=== PATIENT | female | born 1945 | race Caucasian/White ===

== ENCOUNTER 2016-10-08 11:50 | Outpatient (CLI) | payer MEDICARE, BC ==
[~2016-10-08] VITALS: Ht 172.7 cm; Wt 81.8 kg
--- NOTE | ~2016-10-08 | HEMODYNAMI ---
PATIENT:BIANCA EDOUARD MEDICAL RECORD: [id number] : 41 LOCATION:[facility] ADMISSION DATE: 10/08/16 Generatedon:10/08/201615:20 Patient name: BIANCA EDOUARD Patient #: [id number] : 1945 Date of study: 10/08/2016 Page: Of Hemodynamic Procedure Report Patient Data Patient Demographics Procedure consent was obtained First Name: BIANCA Gender: Female Last Name: SILKE : 1945 Middle Initial: S Age: 71 year(s) Patient #: [id number] Race: SSN: [id number] Additional ID: [id number] Contact details Address: [address] [place] [address] State: [place] City: [place] Zip code: [address] Past Medical History Allergies Allergen Reaction Date Comments Reported Morphine 08/30/2014 Morphine 10/08/2016 Admission Admission Data Admission Date: 10/08/2016 Admission Time: 11:50 Arrival Date: 10/08/2016 Arrival Time: 14:00 Admit Source: Other Insurance Payor: Medicare Height (in.): 68 BSA: 2.08 (m2) Height (cm.): 172.72 BMI: 31.63 (kg/m2) Weight (lbs.): 208 Weight (kg.): 94.35 Lab Results Lab Result Date: 10/08/2016 Lab Result Time: 0:00 Biochemistry Name Units Result Min Max BUN mg/dl 16 --(---*)-- 7 18 Creatinine mg/dl 0.9 --(-*--)-- 0.6 1.3 CBC Name Units Result Min Max Hemoglobin g/dl 12.4 *-(----)-- 13.5 17.5 Procedure Procedure Types Cath Procedure Miscellaneous Procedures Moderate Sedation up to 30 minutes Peripheral Cath Diagnostic Procedure Cath Peripheral Bfymi-Rzasiyo-Jla-Off Procedure Description Procedure Date Procedure Date: 10/08/2016 Procedure Start Time: 15:06 Procedure End Time: 15:17 Procedure Staff Name Function Vincenzo Esquivel MD Performing Physician Dianna Johnson RT Scrub Jeff Dickerson RN Nurse Sue Brady RT Monitor Procedure Data Cath Procedure Fluoroscopy Diagnostic fluoroscopy Total fluoroscopy Time: 0.9 time: 0.9 min min Diagnostic fluoroscopy Total fluoroscopy dose: 127 dose: 127 mGy mGy Contrast Material Contrast Material Type Amount (ml) Isovue 370 51 Entry Location Entry Primary Successful Side Size Upsize Upsize Entry Closure Succes sful Closure Location (Fr) 1 (Fr) 2 (Fr) Remarks Device Remarks Femoral Right 5 Fr Exoseal artery Estimated blood loss: 5 ml Diagnostic catheters Device Type Used For End Catheter Placement Cordis Tempo 5Fr UF Multi-vessel catheter Angiography Procedure Complications No complications Procedure Medications Medication Administration Route Dosage Oxygen NC 2 l/min Lidocaine 2% added to field 20 Heparin Flush Bag added to field 2 bags (1000units/500ml NS) 0.9% NaCl I.V. 100 ml/hr Benadryl I.V. 50 mg Versed I.V. 1 mg Fentanyl I.V. 50 mcg 0.9% NaCl I.V. bolus 250 ml Versed I.V. 1 mg Fentanyl I.V. 50 mcg Versed I.V. 1 mg Fentanyl I.V. 50 mcg Fentanyl I.V. 50 mcg Hemodynamics Rest BSA: 2.08 (m2) HGB: 12.4 (g/dl) O2 Consumption: Estimated: 194.02 (ml/min) O2 Co nsumption indexed: Estimated:93.28 (ml/min/m) Heart Rate: 75 (bpm) Snapshots Pre Cath Intra NCS Post Cath Vital Signs Time Heart Resp SPO2 etCO2 CR3avsa NIBP Rhythm Pain Sedation Rate (ipm) (%) (mmHg) (mmHg) (mmHg) Status Level (bpm) 14:50:54 85 31 98 0 0 115/63(79) NSR 0 (11) 10(A) , No pain 14:55:06 86 26 96 0 0 102/67(87) NSR 0 (11) 10(A) , No pain 14:59:16 73 18 96 0 0 91/47(68) NSR 0 (11) 10(A) , No pain 15:03:26 82 15 93 0 0 95/47(67) NSR 0 (11) 10(A) , No pain 15:07:34 81 17 98 0 0 111/61(81) NSR 0 (11) 9(A) , No pain 15:11:42 82 15 94 0 0 85/52(66) NSR 0 (11) 9(A) , No pain 15:16:35 85 16 94 0 0 91/56(72) NSR 0 (11) 9(A) , No pain 15:20:16 92 17 97 0 0 109/57(79) NSR 0 (11) 10(A) , No pain Medications Time Medication Route Dose Verified Delivered Reason Notes Effe ctiveness by by 14:50:23 Oxygen NC 2 Vincenzo Buffie used for l/min Alvin Dickerson RN procedure 14:50:42 Lidocaine 2% added 20ml Vincenzo Vincenzo for local to vial Alvin Esquivel MD anesthetic field 14:50:48 Heparin Flush added 2 Vincenzo Vincenzo used for Bag to bags Alvin Esquivel MD procedure (1000units/500ml field NS) 14:51:58 0.9% NaCl I.V. 100 Vincenzo Buffie Per ml/hr Alvin Dickerson RN physician 14:53:08 Benadryl I.V. 50 mg Vincenzo Buffie used for Alvin Dickerson RN procedure 14:58:40 Versed I.V. 1 mg Vicnenzo Buffie for Alvin Dickerson RN sedation 14:58:46 Fentanyl I.V. 50 Vincenzo Buffie for mcg Alvin Dickerson RN sedation 15:04:05 0.9% NaCl I.V. 250 Vincenzo Buffie Per bolus ml Alvin Dicekrson RN physician 15:04:23 Versed I.V. 1 mg Vincenzo Buffie for Alvin Dickerson RN sedation 15:04:26 Fentanyl I.V. 50 Vincenzo Buffie for mcg Alvin Dickerson RN sedation 15:10:16 Versed I.V. 1 mg Vincenzo Buffie for Alvin Dickerson RN sedation 15:10:20 Fentanyl I.V. 50 Vincenzo Buffie for mcg Alvin Dickerson RN sedation 15:14:44 Fentanyl I.V. 50 Vincenzo Buffie for mcg Alvin Dickerson RN sedation Procedure Log Time Note 14:38:34 Informed consent obtained and on chart 14:39:15 Diagnostic Cath Status : Elective 14:39:31 Jeff Dickerson RN sent for patient. Start room use. 14:39:32 Time tracking: Regular hours 14:39:38 Plan of Care:Hemodynamics will remain stable., Cardiac rhythm will remain stable., Comfort level will be maintained., Respiratory function will remain adequate., Patient/ family verbilizes understanding of procedure., Procedure tolerated without complication., Recovers from procedure without complications.. 14:41:05 Admit Source: Other 14:41:11 Arrival Date: 10/08/2016 2:00:00 PM 14:41:18 Insurance Payor : Medicare 14:41:25 Patient Height : 68 cm 14:41:38 Patient Weight : 208 kg 14:43:24 Lab Result : Hemoglobin 12.4 g/dl 14:43:24 Lab Result : Creatinine 0.9 mg/dl 14:43:24 Lab Result : BUN 16 mg/dl 14:45:42 Patient received from Pre/Post Procedure Room to [facility] 1 Alert and oriented. Tansferred to table in Supine position. 14:45:45 Warm blankets applied, and carole hugger turned on for patient comfort. 14:45:46 Correct patient and procedure confirmed by team. 14:45:47 ECG and BP/O2 sat monitors applied to patient. 14:49:48 Vital chart was started 14:50:20 Rhythm: sinus rhythm 14:50:22 Full Disclosure recording started 14:50:23 Oxygen 2 l/min NC was administered by Jeff Dickerson RN; used for procedure; 14:50:36 H&P Date Dictated: 10/02/2016 Within 30 days and on chart., H&P Addendum completed by physician on day of procedure. (MUST COMPLETE FOR ALL OUTPATIENTS). 14:50:39 Pre-procedure instructions explained to patient. 14:50:39 Pre-op teaching completed and patient verbalized understanding. 14:50:40 Family in waiting room. 14:50:42 Lidocaine 2% 20ml vial added to field was administered by Vincenzo Esquivel MD; for local anesthetic; 14:50:42 Patient NPO since Midnight. 14:50:48 Heparin Flush Bag (1000units/500ml NS) 2 bags added to field was administered by Vincenzo Esquivel MD; used for procedure; 14:50:50 Patient allergic to Morphine 14:50:52 Is the patient allergic to Iodine/contrast media? No. 14:50:55 Is patient on blood thinner?No 14:51:18 Patient diabetic? No. 14:51:23 Previous problem with sedation/anesthesia? No ? 14:51:25 Snore? No 14:51:26 Sleep apnea? No 14:51:29 Deviated septum? No 14:51:30 Opens mouth fully? Yes 14:51:31 Sticks out tongue? Yes 14:51:32 Airway obstruction? No ? 14:51:35 Dentures? No ? 14:51:41 Pre procedure: right dorsailis pedis pulse 1+ Palpable, but thready & weak; easily obliterated 14:51:47 Pre procedure: left dorsailis pedis pulse Doppler 14:51:50 Patient pain scale 0/10 ?. 14:51:58 0.9% NaCl 100 ml/hr I.V. was administered by Jeff Dickerson RN; Per physician; 14:52:02 IV patent on arrival in right forearm with 0.9% NaCl at [facility]. 14:52:06 Lab results completed and on chart. 14:52:09 Alarms reviewed by R. N. 14:52:10 Sharps counted by scrub and verified by R.N. 14:52:25 Acist Syringe opened to sterile field. 14:52:25 Bag Decanter opened to sterile field. 14:52:26 Medline Cath Pack opened to sterile field. 14:52:26 Terumo 5Fr Beatty Sheath opened to sterile field. 14:52:27 St Jean 260cm J .035 wire opened to sterile field. 14:52:28 Acist Hand Control opened to sterile field. 14:52:28 Acist Manifold opened to sterile field. 14:52:30 Tegaderm 4 x 4 opened to sterile field. 14:53:08 Benadryl 50 mg I.V. was administered by Jeff Dickerson RN; used for procedure; 14:53:59 Baseline sample Acquired. 14:57:05 Physician arrived 14:57:06 --------ALL STOP TIME OUT------ 14:57:06 Final Timeout: patient, procedure, and site verified with staff and physician. All members of the team are in agreement. 14:57:09 Bilateral groins site verified by team. 14:57:12 Physical assessment completed. ASA score P 2 - A patient with mild systemic disease as per Vincenzo Esquivel MD. 14:57:17 Sedation plan: IV Moderate Sedation Versed, Fentanyl 14:58:40 Versed 1 mg I.V. was administered by Jeff Dickerson RN; for sedation; 14:58:46 Fentanyl 50 mcg I.V. was administered by Jeff Dickerson RN; for sedation; 15:02:38 Use device set Femoral Dx 15:02:47 Acist Syringe opened to sterile field. 15:02:48 Bag Decanter opened to sterile field. 15:02:49 Medline Cath Pack opened to sterile field. 15:02:51 Terumo 5Fr Beatty Sheath opened to sterile field. 15:02:52 St Jean 260cm J .035 wire opened to sterile field. 15:02:53 Acist Hand Control opened to sterile field. 15:02:54 Acist Manifold opened to sterile field. 15:02:57 Tegaderm 4 x 4 opened to sterile field. 15:04:05 0.9% NaCl 250 ml I.V. bolus was administered by Jeff Dickerson RN; Per physician; 15:04:12 Zero performed for pressure channel P1 15:04:23 Versed 1 mg I.V. was administered by Jeff Dickerson RN; for sedation; 15:04:26 Fentanyl 50 mcg I.V. was administered by Jeff Dickerson RN; for sedation; 15:06:22 Procedure started. 15:06:26 Local anesthetic to right femoral artery with Lidocaine 2% by Vincenzo Esquivel MD.INITIAL ACCESS ONLY 15:09:04 A 5 Fr sheath was inserted into the Right Femoral artery 15:09:21 A Cordis Tempo 5Fr UF catheter was advanced over the wire and used for Multi-vessel Angiography. 15:10:16 Versed 1 mg I.V. was administered by Jeff Dickerson RN; for sedation; 15:10:20 Fentanyl 50 mcg I.V. was administered by Jeff Dickerson RN; for sedation; 15:11:04 Abdominal angiogram w/ runoff was performed. 15:13:34 Injector settings: Ml/sec: 10, Volume: 20, 15:13:36 Catheter removed. 15:13:45 Cordis 5Fr Exoseal opened to sterile field. 15:14:44 Fentanyl 50 mcg I.V. was administered by Jeff Dickerson RN; for sedation; 15:15:10 Sheath removed intact; hemostasis achieved with Exoseal to the Right Femoral artery. 15:15:14 Procedure ended.(Physican Out) 15:15:49 Fluoroscopy time 00.90 minutes. 15:15:54 Fluoroscopy dose: 127 mGy 15:15:54 Flurop Dose total: 127 15:15:59 Contrast amount:Isovue 370 51ml. 15:16:01 Sharps counted by scrub and verified by R.N. 15:16:11 Insertion/operative site no bleeding no hematoma. 15:16:14 Post-op/insertion site Right Femoral artery dressed using a 4 x 4 and Tegaderm. 15:16:18 Post right femoral artery:stable 15:16:20 Post Procedure Pulses reassessed and unchanged 15:16:24 Post procedure rhythm: unchanged. 15:16:27 Estimated blood loss: 5 ml 15:16:29 Post procedure instruction explained to patient.Patient verbalizes understanding. 15:16:30 Patient needs reinforcement of post procedure teaching. 15:16:46 Procedure type changed to Cath procedure, Miscellaneous Procedures, Moderate Sedation up to 30 minutes, Peripheral Cath Diagnostic Procedure, Cath Peripheral, Ysggw-Rbexqzj-Col-Off 15:16:48 Procedure and supply charges have been captured, reviewed, submitted and are correct. 15:16:53 Procedure Complication : No complications 15:16:56 Vital chart was stopped 15:16:56 See physician's report for complete and final results. 15:16:59 Report given to Pre/Post Procedure Room. 15:17:03 Patient transfered to Pre/Post Procedure Room with Stretcher. 15:17:06 Procedure ended. 15:17:06 Full Disclosure recording stopped 15:17:13 End room use (Document Last) Device Usage Item Manufacture Quantity Catalog Hospital Part Current Minimal Lot# / Name Number Charge Number Stock Stock Seri al# Code Acist Acist 2 [id number] 698936 718964 [id number] 20 Syringe [employer] Bag Microtek 2 2002S 272719 75455 [id number] 5 Decanter [employer] Medline Cardinal 2 [id number] 694063 07705 262157 5 Cath Health Pack Terumo Terumo 2 [id number] 027869 726405 936883 [address] [facility] 2 409602 663887 279915 493311 30 260cm J .035 wire Acist Acist 2 28879 455345 524457 317639 5 Hand [employer] Inc Acist Acist 2 43904 768912 168549 028602 5 Manifold [employer] Inc Tegaderm 2 1626W 113890 695104 397913 5 4 x 4 Cordis Cardinal 1 [id number] 536194 227858 969907 10 [facility] 5Fr UF catheter Cordis Cardinal 1 EX500 655142 457166 214566 10 5Fr Health Exoseal Signature Audit [place] Stage Time Signature Unsigned Intra-Procedure 10/08/2016 Sue Brady 3:20:52 PM RT(R) Signatures Monitor : Sue Brady RT Signature : Date : Time : [id number] [place] [address]
[~2016-10-08 11:50] MED LIST: ASPIRIN EC81 MG PO; MULTI-DAY VITAM1 TAB PO; TUMS500 MG
[2016-10-08 13:46] VITALS: BP 95/52; Ht 172.7 cm; Wt 81.8 kg
[2016-10-08 13:56] LABS: BASOPHILS 0.6 % (0.0-2.0); EOSINOPHILS 1.5 % (0-7); HEMATOCRIT 38.1 % (36.0-48.0); HEMOGLOBIN 12.4 g/dL (12-16); IMMATURE GRANULOCYTES 0.2 % (0-5); LYMPHOCYTES 36.4 % (15-50); MCH 30.8 pg (26.0-34.0); MCHC 32.5 g/dL (31.0-37.0); MCV 94.5 fL (80.0-100.0); MEAN PLATELET VOLUME 10.7 fL (7.4-10.4); MONOCYTES 5.5 % (2-11); NEUTROPHILS 55.8 % (40-80); RBC 4.03 10x6/uL (4.00-5.40); RDW 13.6 % (11.5-14.5); WBC 6.2 10x3/uL (4.8-10.8)
[2016-10-08 14:07] LABS: ANION GAP 11.4 mmol/L (8-16); CALCIUM 8.6 mg/dL (8.5-10.1); CARBON DIOXIDE 26.6 mmol/L (21.0-32.0); CREATININE - SERUM 0.9 mg/dL (0.6-1.3)
[2016-10-08 14:13] LABS: PLATELET COUNT 340 10x3/uL (130-400)
--- NOTE | 2016-10-08 18:31 | NUR ---
1545-RIGHT GROIN-CDI, NO HEMATOMA OR BLEEDING NOTED, SOFT TO TOUCH 1615- NO CHANGES IN RIGHT GROIN, RESTING WITH AT SIDE
--- NOTE | 2016-10-17 12:24 | OP ---
PATIENT NAME: BIANCA EDOUARD MEDICAL RECORD: [id number] :41 LOCATION:D.CAT ADMISSION DATE: SURGEON: NENA RAMOS M.D. DATE OF OPERATION: 10/08/2016 REFERRING PHYSICIAN: Jamin Saha MD PROCEDURES PERFORMED: Aortofemoral runoff. INDICATION: A 71-year-old woman presents with leg pain and abnormal lower extremity arterial duplex. EQUIPMENT USED: A 5-Qatari UF catheter. TECHNIQUE: A 5-Qatari sheath was inserted in retrograde fashion in the right common femoral artery. Next, a UF catheter was advanced to the level of T12. Power injection was performed to visualize the distal aorta. Next, the catheter was pulled down to the level of the bifurcation. Right and left lower leg angiograms were then performed. FINDINGS: The distal aorta is of good caliber. There is no evidence of any atheroma or stenosis. Each kidney received a single arterial supply. There is no evidence of renal artery stenosis: Left common iliac artery is large in caliber and widely patent. Left common femoral artery is large in caliber and widely patent. Left superficial femoral artery is large in caliber and widely patent. Left popliteal artery is large in caliber and widely patent. Below the knee, there appears to be 3-vessel runoff. Right common iliac artery is large in caliber and widely patent. Right common femoral artery is large in caliber and widely patent. Right superficial artery is large in caliber and widely patent. Right popliteal artery is large in caliber and widely patent. Below the knee, there appears to be 3-vessel runoff. IMPRESSION: Normal aortofemoral runoff with no evidence of any peripheral vascular disease. TRANSINT:[id number] Voice Confirmation ID: [id number] DOCUMENT ID: [id number] NENA RAMOS M.D. at 1224 CC: [id number] DICTATION DATE: 10/08/161521 [employer] DISMANTLER: 10/08/16 2143 DEP CLI 10/08/[address] [address]
== END 2016-10-08 18:00 | disposition home or self-care (01) ==
LOC: D.CATH 11:50
PROVIDERS: Internal Medicine Cardiovascular Disease
DX: M79.605 Pain in left leg (principal); M79.604 Pain in right leg

== ENCOUNTER → 2016-10-15 10:55 | Outpatient (CLI) | payer MEDICARE, BC ==
[2016-10-08 13:46] VITALS: BMI 27.4
== END | disposition home or self-care (01) ==
LOC: D.US 10:55
DX: R60.9 Edema, unspecified (principal)

== ENCOUNTER → 2017-01-15 15:38 | Outpatient (CLI) | payer MEDICARE, BC ==
[2016-10-08 13:46] VITALS: BMI 27.4
== END | disposition home or self-care (01) ==
LOC: D.MAMMO 15:15
DX: Z12.31 Encounter for screening mammogram for malignant neoplasm of breast (principal)

== ENCOUNTER → 2017-02-05 10:55 | Outpatient (CLI) | payer MEDICARE, BC ==
[2016-10-08 13:46] VITALS: BMI 27.4
== END | disposition home or self-care (01) ==
LOC: D.MRI 10:55
DX: M25.562 Pain in left knee (principal)

== ENCOUNTER 2018-12-16 13:00 | Outpatient (CLI) | payer MEDICARE, BC ==
[2016-10-08 13:46] VITALS: BMI 27.4
== END 2018-12-16 13:30 | disposition home or self-care (01) ==
LOC: D.MAMMO 13:00
PROVIDERS: ATTEND Family Medicine
DX: Z12.31 Encounter for screening mammogram for malignant neoplasm of breast (principal)

== ENCOUNTER → 2019-11-07 08:33 | Outpatient (CLI) | payer MEDICARE, BC ==
[2016-10-08 13:46] VITALS: BMI 27.4
[2019-11-08 10:09] LABS: HEPATITIS C ANTIBODY <0.1 S/CO RAT (0.0-0.9)
== END | disposition home or self-care (01) ==
LOC: D.LAB 08:33 → D.US 09:00
PROVIDERS: ATTEND Internal Medicine Gastroenterology
DX: R74.0 Nonspecific elevation of levels of transaminase and lactic acid dehydrogenase [LDH] (principal)

== ENCOUNTER → 2020-02-23 10:50 | Outpatient (CLI) | payer MEDICARE, BC ==
[2016-10-08 13:46] VITALS: BMI 27.4
== END | disposition home or self-care (01) ==
LOC: D.RAD 10:50
PROVIDERS: ATTEND Family Medicine
DX: M54.16 Radiculopathy, lumbar region (principal)